=== PATIENT | male | born 1955 | race Caucasian/White ===

== ENCOUNTER 2018-04-03 09:31 | Emergency (ER) | payer OTHER, MEDICAID ==
[~2018-04-03] VITALS: Ht 188 cm; Wt 140.1 kg
[~2018-04-03 09:31] MED LIST: ALBU0.086 INH; ALBU6.7H INH; ALBU8I INH; PRED20 PO; SYMB80AE INH
[2018-04-03 09:37] VITALS: BP 191/104; PULSE 85; RESP 18; TEMP 98; O2SAT 96
[2018-04-03] MEDS ORDERED: SYMB160A INH (10:26)
[2018-04-03] MEDS ORDERED: VENTAER INH (10:26)
[2018-04-03 11:00] VITALS: O2SAT 95
[2018-04-03 11:08] VITALS: BP 176/78; PULSE 78; RESP 18; O2SAT 96
--- NOTE | 2018-04-03 11:17 | PD ---
HPI Chief Complaint: Dizziness Time Seen by Provider: 11:03 Travel History International Travel<30 days: No Contact w/Intl Traveler<30days: No Traveled to known affect area: No History of Present Illness HPI Patient woke up this morning with acute onset sudden onset of room spinning sensation and weakness and difficulty ambulating because of the dizziness not because of any weakness. no slurred speech, no n/v/d/cp/montes/sob/sore throat/ dysuria/frequency/hematuria either. Allergies to codeine and penicillin reaction is rash Past medical history significant for corrective lenses, hypertension, COPD, joint replacement and arthroscopy, arthritis. PFSH Past Medical History Hx Anticoagulant Therapy: No Arthritis: Yes Blood Disorders: No Cancer: No Cardiovascular Problems: Yes COPD: Yes Diabetes: No Diminished Hearing: No Endocrine: No Gastrointestinal Disorders: No Genitourinary: No Hypertension: Yes Immune Disorder: No Musculoskeletal: Yes Neurologic: No Reproductive: No Respiratory: Yes (COPD) Immunizations Current: Yes Influenza Vaccination: No ?: Not Past Surgical History Joint Replacement: Yes (RIGHT KNEE) Neurologic Surgery: No Other Surgery: No Social History Alcohol Use: Yes (occ) Tobacco Use: Yes (somewhat) Substance Use: No Allergies-Medications (Allergen,Severity, Reaction): Coded Allergies: codeine (Unverified Allergy, Intermediate, itchy rash, 04/03/18) penicillin G (Unverified Allergy, Intermediate, itchy rash, 04/03/18) Reported Meds & Prescriptions Reported Meds & Active Scripts Active Reported Symbicort Inh (Budesonide/Formoterol Fumarate) 160-4.5 Mcg/Act Aero 1 Puff INH Q12HR Ventolin Hfa 18 GM Inh (Albuterol Sulfate) 90 Mcg/Act Aer 2 Puff INH Q4-6H PRN Review of Systems General / Constitutional: No: Fever Eyes: No: Visual changes HENT: Positive: Vertigo Cardiovascular: No: Chest Pain or Discomfort Respiratory: No: Shortness of Breath Gastrointestinal: No: Abdominal Pain Genitourinary: No: Dysuria Musculoskeletal: No: Pain Skin: No Rash Neurologic: No: Weakness Psychiatric: No: Depression Endocrine: No: Polydipsia Hematologic/Lymphatic: No: Easy Bruising Physical Exam Narrative General: The patient is elderly male. Head and Neck exam: Head is normocephalic atraumatic. ....heent showeed left tympanic effusion without cellulitic changes. clear ear canal Eyes: EOMI, pupils are equal round and reactive to light. Nose: Midline septum with pink mucous membranes Mouth: Dentition unremarkable. Moist mucus membranes. Posterior oropharynx is not erythematous. No tonsillar hypertrophy. Uvula midline. Airway patent. Neck: No palpable lymphadenopathy. No nuchal rigidity. No thyromegaly. Cardiovascular: Regular rate and rhythm without murmurs, gallops, or rubs. No pulse deficit to the extremities. Lungs: Clear to auscultation bilaterally. No wheezes, rhonchi, or rales. Abdomen: Soft, without tenderness to palpation in all 4 quadrants of the abdomen. No guarding, rebound, or rigidity. Negative Union Star sign. Extremities: No clubbing, cyanosis, or edema. 2+ pulses in all 4 extremities. Back: No spinous process tenderness to palpation. No costovertebral angle tenderness to palpation. Neurologic Exam: Cranial nerves 2-12 were intact on exam. Strength is 5/5 in all 4 extremities. No sensory deficits noted. No dysdiadochokinesis. Good finger to nose and Heel to payne bilaterally. Skin Exam: No rash noted. Intact skin that is warm and dry. Data Data Last Documented VS Vital Signs Date Time Temp Pulse Resp B/P (MAP) Pulse Ox O2 Delivery O2 Flow Rate FiO2 04/03/18 11:08 78 18 176/78 (110) 96 Room Air 04/03/18 09:37 98.0 Orders Orders Electrocardiogram (04/03/18 11:11) Complete Blood Count With Diff (04/03/18 11:11) Comprehensive Metabolic Panel (04/03/18 11:11) Troponin I (04/03/18 11:11) Thyroid Stimulating Hormone (04/03/18 11:11) Chest, Single Ap (04/03/18 11:11) Ct Brain W/O Iv Contrast(Rout) (04/03/18 11:11) Iv Access Insert/Monitor (04/03/18 11:11) Ecg Monitoring (04/03/18 11:11) Oximetry (04/03/18 11:11) Labs Laboratory Tests Test 04/03/18 10:55 White Blood Count 8.2 TH/MM3 Red Blood Count 5.00 MIL/MM3 Hemoglobin 15.8 GM/DL Hematocrit 45.3 % Mean Corpuscular Volume 90.7 FL Mean Corpuscular Hemoglobin 31.6 PG Mean Corpuscular Hemoglobin Concent 34.8 % Red Cell Distribution Width 13.6 % Platelet Count 237 TH/MM3 Mean Platelet Volume 8.6 FL Neutrophils (%) (Auto) 78.5 % Lymphocytes (%) (Auto) 13.3 % Monocytes (%) (Auto) 5.4 % Eosinophils (%) (Auto) 1.6 % Basophils (%) (Auto) 1.2 % Neutrophils # (Auto) 6.5 TH/MM3 Lymphocytes # (Auto) 1.1 TH/MM3 Monocytes # (Auto) 0.4 TH/MM3 Eosinophils # (Auto) 0.1 TH/MM3 Basophils # (Auto) 0.1 TH/MM3 CBC Comment DIFF FINAL Differential Comment Blood Urea Nitrogen 20 MG/DL Creatinine 1.00 MG/DL Random Glucose 160 MG/DL Total Protein 7.0 GM/DL Albumin 3.5 GM/DL Calcium Level 9.0 MG/DL Alkaline Phosphatase 75 U/L Aspartate Amino Transf (AST/SGOT) 14 U/L Alanine Aminotransferase (ALT/SGPT) 21 U/L Total Bilirubin 0.4 MG/DL Sodium Level 144 MEQ/L Potassium Level 3.7 MEQ/L Chloride Level 108 MEQ/L Carbon Dioxide Level 26.3 MEQ/L Anion Gap 10 MEQ/L Estimat Glomerular Filtration Rate 75 ML/MIN Troponin I LESS THAN 0.02 NG/ML Thyroid Stimulating Hormone 3rd Gen 1.030 uIU/ML MDM Medical Decision Making Medical Screen Exam Complete: Yes Emergency Medical Condition: Yes Medical Record Reviewed: Yes Differential Diagnosis stemi, nonstemi v anemia v ich v sinusitis v dehydration Narrative Course CBC shows no evidence of any leukocytosis, no evidence of any anemia, normal platelet count, no left shift Elect lites are all within normal limits, normal kidney liver and pancreatic functions Normal TSH screen First set of cardiac enzymes negative Chest x-ray read by radiologist as no acute cardiopulmonary findings Head CT read by radiologist as negative CT of head noncontrast. Diagnosis Primary Impression: acute peripheral vertigo Referrals: Clyde Ram MD for vertigo symptoms Patient Instructions: General Instructions, Vertigo (ED) Scripts Meclizine (Meclizine) 25 Mg Tab 25 MG PO TID Y for VERTIGO for 5 Days, #15 TAB 0 Refills Prov: Germain Martinez MD 04/03/18 Disposition: 01 DISCHARGE HOME Condition: Stable Germain Martinez MD Apr 03, 2018 11:17
--- NOTE | 2018-04-03 11:33 | RADRPT ---
EXAM DATE: 04/03/2018 11:24 AM EDT AGE/SEX: 62 years / Male INDICATIONS: Syncopal episode. CLINICAL DATA: This is the patient's initial encounter. Patient reports that signs and symptoms have been present for 1 day and indicates a pain score of 0/10. MEDICAL/SURGICAL HISTORY: Chronic obstructive pulmonary disease. Hypertension. Arthritis. Sm oker. Total knee replacement, right. COMPARISON: [facility], CHEST SINGLE AP, 05/27/2016. . FINDINGS: A single AP view of the chest demonstrates the lungs to be symmetrically aerated without evidence of mass, infiltrate or effusion. The cardiomediastinal contours are unremarkable. Osseous structures a re intact. CONCLUSION: No acute cardiopulmonary findings. Electronically signed by: You Holt MD 04/03/2018 11:31 AM EDT
[2018-04-03 11:43] LABS: AUTOMATED NEUTROPHIL # 6.5 TH/MM3 (1.8-7.7); BASOPHIL # 0.1 TH/MM3 (0-0.2); BASOPHIL % 1.2 % (0.0-2.0); EOSINOPHIL # 0.1 TH/MM3 (0-0.4); EOSINOPHIL % 1.6 % (0.0-4.0); HEMATOCRIT 45.3 % (39.0-51.0); HEMOGLOBIN 15.8 GM/DL (13.0-17.0); LYMPH % 13.3 % (9.0-44.0); LYMPHOCYTE # 1.1 TH/MM3 (1.0-4.8); MEAN CELL VOLUME 90.7 FL (80.0-100.0); MEAN CORPUSCULAR HEMOGLOBIN 31.6 PG (27.0-34.0); MEAN CORPUSCULAR HGB CONC 34.8 % (32.0-36.0); MEAN PLATELET VOLUME 8.6 FL (7.0-11.0); MONO % 5.4 % (0.0-8.0); MONOCYTE # 0.4 TH/MM3 (0-0.9); NEUT % 78.5 % (16.0-70.0); PLATELET COUNT 237 TH/MM3 (150-450); RED CELL DISTRIBUTION WIDTH 13.6 % (11.6-17.2); WHITE BLOOD COUNT 8.2 TH/MM3 (4.0-11.0)
--- NOTE | 2018-04-03 11:44 | RADRPT ---
EXAM DATE: 04/03/2018 11:29 AM EDT AGE/SEX: 62 years / Male INDICATIONS: Dizziness. Light headed. CLINICAL DATA: This is the patient's initial encounter. Patient reports that signs and symptoms have been present for 1 day and indicates a pain score of 0/10. MEDICAL/SURGICAL HISTORY: Cardiovascular disease. Chronic obstructive pulmonary disease. Hyperten krista. None. RADIATION DOSE: 60.85 CTDI (mGy) COMPARISON: No prior exams available for comparison. TECHNIQUE: CT of the head without contrast. Using automated exposure control and adjustment of the mA and/or kV according to patient size, radiation dose was kept as low as reasonably achievable to ob tain optimal diagnostic quality images. FINDINGS: Cerebrum: The ventricles are normal for age. No evidence of midline shift, mass lesion, hemorrhage or acute infarction. No extraaxial fluid collections are seen. Posterior Fossa: The cerebellum and brainstem are intact. The 4th ventricle is midline. The cerebe llopontine angle is unremarkable. Extracranial: The visualized portion of the orbits is intact. Skull: The calvaria is intact. No evidence of skull fracture. CONCLUSION: 1. Negative CT Head non contrast. 2. No evidence of acute infarct, hemorrhage, mass or edema. Electronically signed by: Filipe Pastrana MD 04/03/2018 11:43 AM EDT
[2018-04-03 11:51] LABS: CHLORIDE 108 MEQ/L (98-107); SODIUM (NA) 144 MEQ/L (136-145)
[2018-04-03 11:53] LABS: BICARBONATE 26.3 MEQ/L (21.0-32.0)
[2018-04-03 11:54] LABS: BLOOD UREA NITROGEN 20 MG/DL (7-18)
[2018-04-03 11:55] LABS: ALBUMIN 3.5 GM/DL (3.4-5.0); GLUCOSE,RANDOM 160 MG/DL (74-106)
[2018-04-03 11:58] LABS: ALT (GPT) 21 U/L (12-78); AST (GOT) 14 U/L (15-37); GLOMERULAR FILTRATION RATE 75 ML/MIN (>89)
[2018-04-03 11:59] LABS: TOTAL BILIRUBIN ADULT 0.4 MG/DL (0.2-1.0)
[2018-04-03 12:01] LABS: ALKALINE PHOSPHATASE 75 U/L (45-117)
[2018-04-03 12:03] LABS: TROPONIN I LESS THAN 0.02 NG/ML (0.02-0.05)
[2018-04-03] MEDS ORDERED: MECL-62 PO (12:34)
--- NOTE | 2018-04-03 18:28 | EKG ---
Date Performed: 04/03/2018 Time Performed: 10:01:28 PTAGE: 62 years EKG: Sinus rhythm WITH MARKED RHYTHM IRREGULARITY, POSSIBLE NON-CONDUCTED PAC, SA BLOCK, AV BLOCK, OR SINUS PAUSE KELLY ED LEFT AXIS DEVIATION RIGHT BUNDLE BRANCH BLOCK slightly irregular supraventricular rythm. significa nt baseline artifact preventing accurate interpretation. probable right bundle branch block. repeat E KG and Clinical correlation is recommended. ABNORMAL ECG PREVIOUS TRACING : 05/27/2016 08.16 DOCTOR: Linda Heath Interpretating Date/Time 04/03/2018 18:27:06
== END 2018-04-03 13:06 | disposition home or self-care (01) ==
LOC: PHED 09:31
DX: H81.399 Other peripheral vertigo, unspecified ear (principal); R94.31 Abnormal electrocardiogram [ECG] [EKG]; R53.1 Weakness; I10 Essential (primary) hypertension; J44.9 Chronic obstructive pulmonary disease, unspecified; M19.90 Unspecified osteoarthritis, unspecified site; Z72.0 Tobacco use
CPT/HCPCS: 70450; 71045; 80053; 84443; 84484; 85025; 93005